=== PATIENT | male | born 1955 | race Caucasian/White ===

== ENCOUNTER → 2022-09-05 | Outpatient (CLI) | payer MEDICARE ==
[~2022-09-05] MED LIST: PROHANCE 279.3MG/ML 15ML VIAL As Ordered ONE; PROHANCE 279.3MG/ML 5ML VIAL As Ordered ONE
== END ==
LOC: M RAD 10:15
PROVIDERS: ATTEND Specialist
DX: R97.20 Elevated prostate specific antigen [PSA] (principal)
CPT/HCPCS: 72197; A9576

== ENCOUNTER → 2024-03-09 | Outpatient (CLI) | payer MEDICARE | LOC: M RAD 10:12 | PROVIDERS: ATTEND Physician Assistant | DX: C61 Malignant neoplasm of prostate (principal) | CPT/HCPCS: 72197; A9576 ==

== ENCOUNTER → 2024-03-19 | Outpatient (CLI) | payer MEDICARE | LOC: M RAD 14:10 | PROVIDERS: ATTEND Physician Assistant | DX: M84.363A Stress fracture, right fibula, initial encounter for fracture (principal); X58.XXXA Exposure to other specified factors, initial encounter; Y92.9 Unspecified place or not applicable ==